=== PATIENT | female | born 1985 | race Caucasian/White ===

== ENCOUNTER 2019-01-15 18:34 | Emergency (ER) | payer BC ==
[2019-01-15] MEDS ORDERED: LORAZEPAM 2 MG/ML VIAL IV ONE (19:10)
[2019-01-15] MEDS ORDERED: MVI, ADULT NO.4 WITH VIT K 10 ML, THIAMINE HCL IV 100 MG in 0.9 % SODIUM CHLORIDE 1000M... IV SCH ×3 (19:15)
[2019-01-15] MEDS ORDERED: ONDANSETRON HCL IV 4 MG/2 ML VIAL IVP ONE (19:15)
--- NOTE | 2019-01-15 19:15 | Emergency Department Record ---
History of Present Illness - General Chief complaint: Dehydration Stated complaint: DEHYDRATED/ALCOHOL RELATED Time Seen by Provider: 01/15/19 19:08 Source: Patient Mode of Arrival: Ambulatory Limitations: No limitations - History of Present Illness Initial comments: Pt with long history of alcohol abuse relates issues with this abuse. Pt states she had been "dry" for a month and then started drinking two weeks ago related to life stress. Pts stated last drink was 48 hours ago. She has history of withdraw seizures. She has not had a seizure with this episode. She has been sleeping and had multiple episodes of emesis - without blood. She has cramping abdominal pains. She has no FRANK. She is a smoker and denies other drug abuse. +Hx of HTN and off meds today due to emesis. Onset/Timin -: Week(s) Location: Generalized Severity: Moderate Severity scale (1-10): 8 Quality: Aching Consistency: Constant Improves with: None Worsens with: None Associated Symptoms: Loss of appetite, Nausea/vomiting - Related Data Home Medications Medication Instructions Recorded Confirmed Last Taken Escitalopram Oxalate [Lexapro] 10 mg PO DAILY 01/15/19 01/15/19 Unknown Losartan Potassium 50 mg PO DAILY 01/15/19 01/15/19 Unknown Previous Rx's Medication Instructions Recorded Lorazepam [Ativan] 1 mg PO Q8HR PRN 3 Days #6 tablet 01/15/19 Allergies Allergy/AdvReac Type Severity Reaction Status Date / Time amoxicillin [From Augmentin] AdvReac NAUSEA Verified 01/15/19 19:00 clavulanic acid AdvReac NAUSEA Verified 01/15/19 19:00 [From Augmentin] doxycycline AdvReac NAUSEA Verified 01/15/19 19:00 Travel Screening - Travel/Exposure Within Last 30 Days Have you traveled within the last 30 days?: No Review of Systems Constitutional: Denies: Chills, Fever, Weakness Eyes: Denies: Eye discharge, Photophobia ENT: Denies: Congestion, Ear pain Respiratory: Denies: Cough, Dyspnea, Hemoptysis Cardiovascular: Denies: Arrhythmia, Chest pain, Syncope Endocrine: Reports: Fatigue. Denies: Polydipsia, Polyuria Gastrointestinal: Reports: As per HPI, Abdominal pain, Nausea, Vomiting. Denies : Diarrhea, Hematemesis, Hematochezia, Melena Genitourinary: Denies: Abnormal menses Musculoskeletal: Denies: Back pain, Neck pain Skin: Denies: Bruising, Rash Neurological: Reports: Tremors. Denies: Abnormal gait, Headache, Seizure Psychiatric: Reports: Anxiety. Denies: Homicidal thoughts, Suicidal thoughts Hematological/Lymphatic: Denies: Anemia Past Medical History - SOCIAL HISTORY Smoking Status: Current every day smoker Alcohol Use: Heavy Drug Use: None - RESPIRATORY Hx Respiratory Disorders: Yes Hx Asthma: Yes - CARDIOVASCULAR Hx Cardio Disorders: No - NEURO Hx Neuro Disorders: Yes Hx Seizures: Yes (since Aug 2018) - GI Hx GI Disorders: Yes Hx Abdominal Pain: Yes (colitis) Hx Irritable Bowel: Yes (alcohol related) - Hx Genitourinary Disorders: Yes Hx Renal Disease: Yes (alcohol related) - ENDOCRINE Hx Endocrine Disorders: No - MUSCULOSKELETAL Hx Musculoskeletal Disorders: No - PSYCH Hx Psych Problems: Yes Hx Anxiety: Yes Hx Depression: Yes - HEMATOLOGY/ONCOLOGY Hx Hematology/Oncology Disorders: No Family Medical History Any Significant Family History?: No Physical Exam - General General Appearance: Alert, Oriented x3, Cooperative, Mild distress - Head Head exam: Atraumatic - Eye Eye exam: PERRL, EOMI. negative: Nystagmus - ENT ENT exam: Normal exam, Mucous membranes moist, Normal external ear exam, Normal orophraynx, TM's normal bilaterally - Neck Neck exam: Normal inspection, Full ROM. negative: Tenderness - Respiratory Respiratory exam: Normal lung sounds bilaterally. negative: Respiratory distress, Rhonchi, Wheezes - Cardiovascular Cardiovascular Exam: Regular rate, Normal rhythm, Normal heart sounds Peripheral Pulses: 2+: Radial (R), Radial (L) - GI/Abdominal GI/Abdominal exam: Soft, Normal bowel sounds, Tenderness. negative: Distended, Guarding, Rebound, Rigid - Extremities Extremities exam: Normal inspection, Full ROM, Normal capillary refill. negative: Joint swelling - Back Back exam: Reports: Normal inspection. Denies: Vertebral tenderness - Neurological Neurological exam: Alert, CN II-XII intact, Normal gait, Oriented X3, Reflexes normal. negative: Altered - Psychiatric Psychiatric exam: Anxious, Normal affect, Normal mood. negative: Suicidal ideation - Skin Skin exam: Normal color. negative: Rash Course Vital Signs 01/15/19 18:49 Temperature 98.4 F Pulse Rate 143 H Respiratory 20 Rate Blood Pressure 152/117 Pulse Ox 99 - Reevaluation(s) Reevaluation #1: 01/15/19 19:15 [address] IV fluids with lab ordered. Reevaluation #2: 01/15/19 20:12 Pt improved with fluids and meds. Long talk with pt and boyfriend Gabriel in room. Pt has gone to AA meetings in past and needs to return. She is actively trying to NOT drink. They are comfortable with home. She has a supportive family physician. Procedures - EKG Initial Date: 01/15/19 Time: 19:22 EKG: Abnormal EKG (ST at 104 ) Medical Decision Making - Management Options MDM Management: No Additional Work-up Planned - Data Complexity MDM Data: Labs Ordered and/or Reviewed, EKG Ordered and/or Reviewed, Independent Visualization of Image, Tracing, or Specimen - Lab Data Result diagrams: 01/15/19 19:20 01/15/19 19:20 - EKG Data -: EKG Interpreted by Me EKG: Abnormal EKG (ST 104) Disposition Disposition: Discharge Clinical Impression: Alcohol abuse, Alcohol withdrawal Disposition: Home, Self-Care Condition: (2) Stable Additional Instructions: Should resume AA meetings daily. See your physician in 1-2 days. Take medication as instructed. Return to the ED as needed. NO ALCOHOL> Prescriptions: Lorazepam [Ativan] 1 mg PO Q8HR PRN 3 Days #6 tablet PRN Reason: Alcohol Withdrawal Forms: Patient Portal Access Time of Disposition: 20:34 Quality - Quality Measures Quality Measures: N/A - Blood Pressure Screening Does Patient Have Any of the Following: No, Active Dx of HTN Blood Pressure Classification: Hypertensive Reading Systolic Measurement: 152 Diastolic Measurement: 117 Screening for High Blood Pressure: Patient Exclusion, Hx of HTN [[id number]]
[2019-01-15 19:29] LABS: BASO % 0.2 % (0-6); HEMOGLOBIN 13.7 gm/dl (11.6-16.0); LYMPH % 24.8 % (16-45); MEAN CELL VOLUME 102.2 fl (81-97); MEAN CORPUSCULAR HEMOGLOBIN 36.8 pg (27-33); MEAN CORPUSCULAR HGB CONC 36.1 g/dl (32-36); MEAN PLATELET VOLUME 8.6 fl (7.4-10.4); PLATELET COUNT 287 K/uL (130-400); RED BLOOD COUNT 3.72 M/uL (3.80-5.40); RED CELL DISTRIBUTION WIDTH 14.8 % (11.5-14.5); WHITE BLOOD COUNT W/O DIFF 4.9 K/uL (4.2-12.2)
[2019-01-15 19:38] LABS: BLOOD UREA NITROGEN 13 mg/dL (6-20); CREATININE 0.5 mg/dL (0.5-0.9); EST GLOMERULAR FILTRATION RATE > 60 mL/min
[2019-01-15 19:39] LABS: TOTAL PROTEIN 7.6 g/dL (6.6-8.7)
[2019-01-15 19:41] LABS: GLUCOSE,RANDOM 96 mg/dL (74-109)
[2019-01-15 19:44] LABS: ALB/GLOB RATIO 1.7 (1.1-1.8); ALBUMIN 4.8 g/dL (4.0-5.0); ALKALINE PHOSPHATASE 62 U/L (35-104); ALT/SGPT 22 U/L (<33); AST/SGOT 65 U/L (10.0-35.0)
== END 2019-01-15 21:16 | disposition home or self-care (01) ==
LOC: ER 18:34
DX: F10.10 Alcohol abuse, uncomplicated (principal); R11.2 Nausea with vomiting, unspecified; F07.9 Unspecified personality and behavioral disorder due to known physiological condition; Y90.1 Blood alcohol level of 20-39 mg/100 ml; I10 Essential (primary) hypertension; F17.210 Nicotine dependence, cigarettes, uncomplicated
CPT/HCPCS: 80053; 80320; 83735; 85025; 93005; 93010; 96365; 96375; 99284; J2405; J3411; J7030